=== PATIENT | female | born 1985 | race Caucasian/White ===

== ENCOUNTER 2017-11-10 16:06 | Emergency (ER) | payer OTHER, MEDICAID | END 2017-11-10 19:24 | disposition left against medical advice (07) | LOC: FTE 16:06 | DX: R09.89 Other specified symptoms and signs involving the circulatory and respiratory systems (principal); R06.02 Shortness of breath; X58.XXXA Exposure to other specified factors, initial encounter; Y92.9 Unspecified place or not applicable | CPT/HCPCS: 70360; 71045; 93005; 99284-25 ==